=== PATIENT | male | born 1955 | race Caucasian/White ===

== ENCOUNTER → 2016-12-18 | Outpatient (CLI) | payer BC, OTHER ==
[2016-12-18 09:10] LABS: CREATININE, URINE 254.4 MG/DL (15-500)
== END ==
LOC: LAB 07:48
PROVIDERS: ATTEND Internal Medicine
DX: E11.9 Type 2 diabetes mellitus without complications (principal); E78.5 Hyperlipidemia, unspecified
CPT/HCPCS: 82043; 82550

== ENCOUNTER → 2017-06-03 | Outpatient (CLI) | payer BC, OTHER ==
--- NOTE | 2017-06-03 19:41 | DI ---
MRI CERVICAL SPINE SCAN, 06/03/2017 9:58 AM: Clinical History: Cervical radiculopathy. Previous Exam: 03/02/2015. Sequences: Sagittal T1and T2 weighted. Axial T2 PLUS and FE 3D DUAL. Coronal T1 scans through the upp er cervical spine. The vertebral bodies are of normal height and size. The patient has had posterior fusions between C1 to and C2-3 performed with metallic struts transfixed with screws inserted into the lateral masses bi laterally between C1 and C3. The cervical cord and cerebellar tonsils are normal. The C2-3 and C3-4 d isc spaces are normal. C4-5 has a circumferentially bulging but not herniated disc without canal sten osis. There is right neural foraminal stenosis. There is no left neural foraminal stenosis. C5-6 has a right anterolateral disc herniation that is displacing the cord posteriorly on the right side. The AP diameter of the canal is at the lower limits of normal. There is bilateral neural foraminal stenos is. C6-7 has a bulging but not herniated disc without canal or significant neural foraminal stenosis. C7-T1 has anterior subluxation of C7 on T1 by approximately 1-2 mm with a bulging but not herniated disc. There is no canal or neural foraminal stenosis. The T1-2 through T3-4 disc spaces have bulging but not herniated discs without canal or neural foraminal stenosis. Readin. There is a right anterolateral disc herniation with bilateral neural foraminal stenosis at C5-6. There is no canal stenosis. 2. There is a bulging but not herniated disc without canal or left neural foraminal stenosis but wit h right neural foraminal stenosis at C4-5. 3. C7-T1 through T2 4 show bulging but not herniated discs without significant neural foraminal sten osis. There is anterior subluxation of C7 on T1 by 1-2 mm. 4. Status post posterior fusion of C2-3 and C3-4. Both levels show no canal or neural foraminal sten osis.
== END ==
LOC: MRI 09:54
PROVIDERS: ATTEND Internal Medicine
DX: M54.12 Radiculopathy, cervical region (principal); M50.222 Other cervical disc displacement at C5-C6 level; M47.812 Spondylosis without myelopathy or radiculopathy, cervical region; M47.814 Spondylosis without myelopathy or radiculopathy, thoracic region
CPT/HCPCS: 72141